=== PATIENT | female | born 1965 | race Caucasian/White ===

== ENCOUNTER 2017-01-30 19:29 | Emergency (ER) | payer SELFPAY ==
[2017-01-30] MEDS ORDERED: HYDROcodone-APAP 5 MG -325 MG TABLET PO ONE (19:37)
--- NOTE | 2017-01-30 19:38 | PDOC ---
Foot / Ankle Injury - General Chief Complaint: Lower Extremity Problem/Injury Stated Complaint: LEFT ANKLE INJURY AFTER FALL Date Seen by Provider: 01/30/17 Time Seen by Provider: 19:45 Source: POSITIVE: Patient, Spouse Exam Limitations: POSITIVE: No limitations Nurse's Notes Reviewed & Considered: Yes - History of Present Illness Initial Comments: This pleasant 51-year-old female comes in today with chief complaint of left ankle pain. Patient was in her normal state of health tonight going downstairs when she hyperextended her left foot. This hyperextension occur both cause of the fall. She had no other injury pattern and no other complaints except her ankle. Predominantly at ankle pain is in the posterior portion of her ankle adjacent to the Achilles tendon. In addition she does have some mild tenderness complaints of lateral malleolus. She has good capillary refill, good sensations, impaired Range of motion secondary to pain. Have you received a tetanus shot in the past 10 years?: No Location: Left Ankle Timing: REPORTS: Abrupt Duration: 1-3 hours Severity: Moderate Quality: REPORTS: "Pain" Location at Time of Onset: REPORTS: Home Context: REPORTS: Fall Modifying Factors: REPORTS: Movement, Rest, Positioning Associated Symptoms: REPORTS: Numbness Distally Any Prior Injuries Related to Current Complaint?: No - Patient Allergies Allergies/Adverse Reactions: Allergies Allergy/AdvReac Type Severity Reaction Status Date / Time codeine [Codeine] Allergy Severe ANAPHLAXIS Verified 01/30/17 19:34 tramadol Allergy Severe HEADACHE Verified 01/30/17 19:34 - Patient Home Medications Home Medications: Home Medications Multivitamin [Multi-Day Vitamins] 1 each PO DAILY 01/30/17 Past Medical History - heen HEENT History: Other (please comment) Additional HEENT History: far sighted Cardiovascular History: Denies History, Hyperlipidemia Respiratory History: COPD, Emphysema, Snoring Additional Respiratory History: chronic tobacco abuse Gastrointestinal History: GERD, Gallbladder Disease Additional Gastrointestinal History: 2010 H PYLORI. ESOPHAGEAL ISSUES AND A HIATAL HERNIA Genitourinary History: Denies History Endocrine History: Denies History Musculoskeletal History: Back Pain, Joint Pain, Osteoarthritis Prosthesis or Implant: No Additional Musculoskeletal History: RIGHT HIP REPLACEMENT Neurological History: Frequent Headaches Blood Disorders: Denies History Psychiatric History: Depression Additional Psychiatric History: HX OF METH/ CLEAN X 7 YRS History of Sexually Transmitted Diseases: No Cancer History: Denies History History of MDRO: No History of Other Communicable Diseases: No Alcohol Use: None Substance Use Type: None, Methamphetamines Previous Surgical History: Yes Type / Date of Surgery: RIGHT BEBETO/ BILAT OOPHORECTOMY/ TVT/ BILAT CTR/ COLONOSCOPY X4/ EYE AND BROW LIFT/ HYST/ RHISOTOMY/ TONSILLECTOMY/ TUBAL/BILAT CTR/JAVID Anesthesia Reactions: No Malignant Hyperthermia: No Significant Family History: No pertinent family hx, Heart disease, Cancer Additional Family History: FATHER HAD ALS AND PROSTATE CA, MOTHER HAD OVARIAN OR UTERINE CA ROS - Limitations ROS Limitations: No Limitations Constitution: REPORTS: Denies Symptoms Cardiovascular: REPORTS: Denies Cardiac Symptoms Respiratory: REPORTS: Denies Resp Symptoms Neurological: REPORTS: Numbness (Dorsum of her left foot and ankle.) Gastrointestinal: REPORTS: Denies GI Symptoms Endocrine: REPORTS: Denies Symptoms Musculoskeletal: REPORTS: Joint Pain (Left ankle) Genitourinary: REPORTS: Denies Symptoms Eyes: REPORTS: Denies Symptoms ENT: REPORTS: Denies Symptoms Skin: REPORTS: Denies Skin Symptoms Lympathic: REPORTS: Denies Lympathic Symptoms Immunologic: POSITIVE: Denies Symptoms Psychiatric: POSITIVE: Denies Psych Symptoms Foot / Ankle Exam - General Appearance General Appearance: POSITIVE: Alert, Cooperative, No Acute Distress, No Evidence of Trauma - Extremities Foot: POSITIVE: Soft Tissue Tenderness (adjacent to the Achilles tendon no edema bruising is appreciated), Limited ROM d/t Pain Ankle: POSITIVE: Soft-Tissue Tenderness, Limited ROM Gait: POSITIVE: Limited by Pain Neuro: POSITIVE: Motor Normal, Peroneal Nerve Deficit (numbness along the peroneal nerve distribution on her dorsum left foot.) Vascular: POSITIVE: No Vascular Compromise Tendons: POSITIVE: Tendon Function Normal Skin: POSITIVE: Warm, Dry - HEENT HEENT: POSITIVE: Head Inspection Nml, Eyes Inspection Nml, Ears Inspection Nml, Nose Inspection Nml, Oral/Dental Inspect. Nml, Pharynx Inspect. Nml, PERRL, EOMI - Abdomen Abdomen: Denies Tenderness: (All Quadrants) Foot / Ankle Progress - Results Reviewed by me Pain Medication Addressed: POSITIVE: Yes Xrays/CTs/US Reviewed by me: Yes Discussed with Radiologist: Yes Radiology Results: POSITIVE: Left, Ankle, Normal, No Fracture, Normal Alignment , No Foreign Body - Patient's Progress Re-examine Time: 20:52 Status: POSITIVE: Improved MDM / ED Course: Patient was examined and radiographic examinations of her left ankle were obtained. My review of her x-ray shows no acute osseous abnormalities, no soft tissue swelling. Assessment: Ankle sprain. Cannot rule out ligamentous damage or call fractures. Plan: Discharge home, blood so boot, crutches, bear weight as tolerated, NSAIDs , [place] prescribed for breakthrough pain. Instructions for elevation ice and rest. Lower Extremity Clinical Tools: POSITIVE: [place] Ankle Rule - Consult Counseled: POSITIVE: Patient, Family, RE: Radiology Results, RE: DX, RE: Need for F/U Patient Care Time - Estimated PCT Patient Care Time (In Minutes): 20 Vital Signs - Recent Vital Signs Vital Signs: Vital Signs (Last 8 hours) Temp Pulse Resp BP Pulse Ox 01/30/17 19:35 96.6 F L 70 16 141/76 96 01/30/17 19:29 96.6 F L 70 16 141/76 96 - VS Reviewed Vital Signs Reviewed: Yes Discharge Clinical Impression: Sprain of ankle Discharge Disposition: Discharged to Home Condition: Stable Patient Instructions Given at Discharge: Ankle Sprain (ED)
[2017-01-30 19:44] VITALS: RESP 16; TEMP 96.6
--- NOTE | 2017-01-30 20:30 | DI ---
HISTORY: Ankle pain after falling. COMPARISON: None available. FINDINGS: Three (3) views of the left ankle are obtained, and demonstrate anatomic alignment without fractures. The surrounding soft tissues are unremarkable. There is no evidence of ankle joint effu lenka.. IMPRESSION: 1. No fracture.
== END 2017-01-30 20:59 | disposition home or self-care (01) ==
LOC: ER 19:29
DX: S93.402A Sprain of unspecified ligament of left ankle, initial encounter (principal); W18.39XA Other fall on same level, initial encounter
CPT/HCPCS: 73610; 99282; 99283

== ENCOUNTER → 2017-02-10 | Outpatient (CLI) | payer SELFPAY ==
--- NOTE | 2017-02-13 01:03 | DI ---
XR FOOT COMPLETE MIN 3VW,02/10/2017 11:31 AM: Clinical History: Left foot pain Previous Exam: January 30, 2017 Findings: 3 views of the left foot are obtained, and demonstrate anatomic alignment without fractures. Surround ing soft tissues are unremarkable. There is some enthesopathy noted at the insertion of the plantar f ascia. Impression: No fracture. Note: If pain persists or worsens, recommend followup imaging in 7-10 days to rule out an occult frac ture.
--- NOTE | 2017-02-13 01:04 | DI ---
XR ANKLE 2VW,02/10/2017 11:31 AM: Clinical History: Left ankle pain of unspecified chronicity. Previous Exam: None at this facility. Findings: 3 views of the left ankle are obtained, and demonstrate anatomic alignment without fractures. The silvio rounding soft tissues are unremarkable. Impression: Normal left ankle.
== END ==
LOC: MOB RAD 11:32
PROVIDERS: ATTEND Family Medicine
DX: M25.572 Pain in left ankle and joints of left foot (principal); M79.672 Pain in left foot; M77.8 Other enthesopathies, not elsewhere classified; F17.200 Nicotine dependence, unspecified, uncomplicated
CPT/HCPCS: 73600; 73630